=== PATIENT | female | born 1955 | race Caucasian/White ===

== ENCOUNTER → 2019-01-28 16:50 | Outpatient (CLI) | payer MEDICARE ==
[2011-04-22 08:07] VITALS: BMI 32.7
== END | disposition home or self-care (01) ==
LOC: D.MAMMO 14:15
PROVIDERS: ATTEND Emergency Medicine
DX: Z12.31 Encounter for screening mammogram for malignant neoplasm of breast (principal)

== ENCOUNTER → 2019-03-15 08:00 | Outpatient (CLI) | payer MEDICARE ==
[2011-04-22 08:07] VITALS: BMI 32.7
== END | disposition home or self-care (01) ==
LOC: D.MAMMO 02-24 09:30
PROVIDERS: ATTEND Emergency Medicine
DX: R92.8 Other abnormal and inconclusive findings on diagnostic imaging of breast (principal)

== ENCOUNTER 2020-11-16 15:19 | Emergency (ER) | payer MEDICARE ==
[~2020-11-16] VITALS: Ht 162.6 cm; Wt 80.0 kg
[2020-11-16 15:40] VITALS: BP 179/76; Ht 162.6 cm; Wt 80.0 kg
[2020-11-16 16:25] LABS: BASOPHILS 0.1 % (0-2); EOSINOPHILS 0.9 % (0-7); HEMATOCRIT 37.7 % (36.0-48.0); HEMOGLOBIN 10.4 g/dL (12-16); IMMATURE GRANULOCYTES 0.1 % (0-5); LYMPHOCYTE ABS# 3.18 10x3/uL (1.18-3.74); LYMPHOCYTES 22.6 % (15-50); MCHC 27.6 g/dL (31.0-37.0); MCV 71.5 fL (80.0-100.0); MEAN PLATELET VOLUME 8.7 fL (7.4-10.4); MONOCYTES 8.7 % (2-11); NEUTROPHIL ABS# 9.51 10x3/uL (1.56-6.13); NEUTROPHILS 67.6 % (40-80); RBC 5.27 10x6/uL (4.00-5.40); RDW 18.9 % (11.5-14.5); WBC 14.1 10x3/uL (4.8-10.8)
[2020-11-16 16:26] LABS: MCH 19.7 pg (26.0-34.0); PLATELET COUNT 327 10x3/uL (130-400)
[2020-11-16 16:32] LABS: CALC OSMOLALITY 269 mosm/kg (275-300); CALCIUM 9.1 mg/dL (8.5-10.1); CARBON DIOXIDE 35.6 mmol/L (21.0-32.0); CHLORIDE - SERUM 100 mmol/L (98-107); CREATININE - SERUM 0.6 mg/dL (0.6-1.3); GLUCOSE 124 mg/dL (74-106); POTASSIUM - SERUM 3.9 mmol/L (3.5-5.1); SODIUM 135 mmol/L (136-145); UREA NITROGEN 9 mg/dL (7-18); eGFR NON AFRICAN AMERICAN > 90 mL/min (90-120)
[2020-11-16 16:33] LABS: APTT 27.8 SECONDS (22.8-39.4); INR 1.14 (0.85-1.17); PROTIME 13.5 SECONDS (11.6-15.0)
[2020-11-16 16:50] LABS: ALBUMIN 3.3 g/dL (3.4-5.0); ALKALINE PHOSPHATASE 100 U/L (30-120); ALT (SGPT) 19 U/L (10-68); BILIRUBIN - TOTAL 0.28 mg/dL (0.2-1.3); CKMB 0.8 U/L (0.0-3.6); CREATINE KINASE 44 UL (21-215); PRO BNP 272 pg/mL (0-125); PROTEIN - SERUM 7.2 g/dL (6.4-8.2); TROPONIN-I < 0.017 ng/mL (0.000-0.060)
[2020-11-16 18:54] LABS: SARS-CoV-2 ANTIGEN NEGATIVE- SARS-COV-2 (NEGATIVE)
== END 2020-11-16 20:18 | disposition home or self-care (01) ==
LOC: D.ER 15:19
PROVIDERS: Emergency Medicine
DX: J44.9 Chronic obstructive pulmonary disease, unspecified (principal); F17.200 Nicotine dependence, unspecified, uncomplicated; Z86.73 Personal history of transient ischemic attack (TIA), and cerebral infarction without residual deficits; I10 Essential (primary) hypertension

== ENCOUNTER → 2021-02-23 15:10 | Outpatient (CLI) | payer MEDICARE ==
[2020-11-16 15:40] VITALS: BMI 30.2
== END | disposition home or self-care (01) ==
LOC: D.LAB 15:10
PROVIDERS: ATTEND Internal Medicine Pulmonary Disease
DX: J44.9 Chronic obstructive pulmonary disease, unspecified (principal); Z11.52 Encounter for screening for COVID-19

== ENCOUNTER → 2021-02-27 07:37 | Outpatient (CLI) | payer MEDICARE ==
[2020-11-16 15:40] VITALS: BMI 30.2
[2021-02-27 09:18] LABS: BASOPHILS 0.6 % (0-2); EOSINOPHILS 1.4 % (0-7); HEMATOCRIT 45.6 % (36.0-48.0); HEMOGLOBIN 14.1 g/dL (12-16); LYMPHOCYTES 16.8 % (15-50); MCH 24.7 pg (26.0-34.0); MCV 79.7 fL (80.0-100.0); MEAN PLATELET VOLUME 6.8 fL (7.4-10.4); MONOCYTES 7.2 % (2-11); PLATELET COUNT 358 10x3/uL (130-400); RBC 5.72 10x6/uL (4.00-5.40); RDW 27.3 % (11.5-14.5); WBC 10.3 10x3/uL (4.8-10.8)
[2021-02-28 07:16] LABS: IMMUNOGLOBULIN A 252 mg/dL (87-352); IMMUNOGLOBULIN G 1156 mg/dL (586-1602); IMMUNOGLOBULIN M 151 mg/dL (26-217)
[2021-03-01 12:11] LABS: IGG SUBCLASS 1 488 mg/dL (248-810); IGG SUBCLASS 2 492 mg/dL (130-555); IGG SUBCLASS 3 81 mg/dL (15-102); IGG SUBCLASS 4 65 mg/dL (2-96); IGGS - IGG SERUM 1126 mg/dL (586-1602)
[2021-03-01 15:12] LABS: IMMUNOGLOBULIN E 110 IU/mL (6-495)
== END | disposition home or self-care (01) ==
LOC: D.RT 07:37
PROVIDERS: ATTEND Internal Medicine Pulmonary Disease
DX: J44.9 Chronic obstructive pulmonary disease, unspecified (principal)